=== PATIENT | male | born 1975 | race Hispanic/Latino ===

== ENCOUNTER 2017-04-22 01:33 | Emergency (ER) | payer SELFPAY ==
[~2017-04-22] VITALS: Ht 172.7 cm; Wt 109.3 kg
[~2017-04-22 01:33] MED LIST: FLEXERIL10 MG PO; MOTRIN600 MG PO; NAPROSYN500 MG PO; ROBAXIN500 MG PO; SKELAXIN800 MG PO; TESSALON PERLE100 MG PO; ULTRAM50 MG PO
[2017-04-22] MEDS ORDERED: ZITHROMAX Z-PA250 MG PO (03:17)
[2017-04-22] MEDS ORDERED: LORTAB 5-325 M1 EACH PO (03:17)
[2017-04-22] MEDS ORDERED: MOTRIN600 MG PO (03:17)
[2017-04-22 03:55] VITALS: BP 119/71
== END 2017-04-22 03:56 | disposition home or self-care (01) ==
LOC: EME 01:33
DX: J20.9 Acute bronchitis, unspecified (principal); F17.200 Nicotine dependence, unspecified, uncomplicated
CPT/HCPCS: 71020; 93005; 99281; 99284